=== PATIENT | female | born 1995 | race Caucasian/White ===

== ENCOUNTER 2017-08-21 08:38 | Emergency (ER) | payer OTHER ==
[~2017-08-21] VITALS: Ht 172.7 cm; Wt 69.9 kg
[~2017-08-21 08:38] MED LIST: AMPH1TAB58 PO; AMPH20CA3 PO; BCPILLS PO; IBUP-1050 PO
[2017-08-21 08:44] VITALS: TEMP 36.6; Ht 172.7 cm; Wt 69.9 kg
[2017-08-21] MEDS ORDERED: ONDANSETRON INJ 2 MG/ML 2 ML VIAL IV STA (09:13)
[2017-08-21] MEDS ORDERED: SODIUM CHLORIDE 0.9% 1000ML 1,000 ML IV STA (09:13)
[2017-08-21] MEDS ORDERED: FLUO20CA35 PO (09:15)
[2017-08-21 09:38] LABS: BASO % 0.5 %; BASO ABS # 0.03 K/uL (0-0.2); EOS ABS # 0.06 K/uL (0-0.5); HEMATOCRIT 42.2 % (37-47); HEMOGLOBIN 14.6 g/dL (12.0-16.0); IG# 0.01 K/uL (0.00-0.02); LYMPH % 24.9 %; LYMPH ABS # 1.46 K/uL (1.2-3.4); MEAN CELL VOLUME 90.2 fL (80-100); MEAN CORPUSCULAR HEMOGLOBIN 31.2 pg (25-34); MEAN CORPUSCULAR HGB CONC 34.6 g/dl (32-36); MEAN PLATELET VOLUME 9.7 fL (7.4-10.4); MONO % 7.2 %; MONO ABS # 0.42 K/uL (0.11-0.59); NEUT % 66.2 %; NEUT ABS # 3.89 K/uL (1.4-6.5); PLATELET COUNT 238 K/uL (130-400); RED CELL DISTRIBUTION WIDTH CV 12.7 % (11.5-14.5); RED CELL DISTRIBUTION WIDTH SD 41.4 fL (36.4-46.3); WHITE BLOOD COUNT 5.87 K/uL (4.8-10.8)
[2017-08-21 10:05] LABS: ALBUMIN 4.3 gm/dl (3.4-5.0); CALCIUM 9.3 mg/dl (8.5-10.1); CREATININE 1.03 mg/dl (0.60-1.20); POTASSIUM 4.4 mmol/L (3.5-5.1)
[2017-08-21 10:07] LABS: TOTAL PROTEIN 8.5 gm/dl (6.4-8.2)
[2017-08-21] MEDS ORDERED: ONDA4TAB10 SL (11:22)
--- NOTE | 2017-08-21 11:23 | EMERGENCY ROOM VISIT NOTE ---
History First contact with patient: 08:47 Chief Complaint: ABDOMINAL PAIN Stated Complaint: SEVERE STOMACH PAIN, DIARRHEA Nursing Triage Summary: "Two weeks ago what I thought was just the flu. I had a diarrhea, fever, vomiting that lasted 3 days." She relates that she improved and this week she has been fatigued. She now has abdominal pain and "straight diarrhea". Generalized abdominal pain. History of Present Illness The patient is a 21 year old female who presents to the Emergency Room with complaints of diarrhea, abdominal discomfort and nausea. The patient states that these symptoms started last night. She does report that 2 weeks ago, she had 3 days of diarrhea, vomiting and fever. These symptoms resolved. She states she has had decreased energy this week and her diarrhea returned last night. She has had crampy abdominal pains which become more sharp when she begins having a bowel movement but then feels slightly better after having a bowel movement. She rates the discomfort as 7/10. She has been nauseous, but has not vomited. She denies any history of abdominal issues or surgeries. She denies blood in her stools, fevers, or urinary symptoms. She denies recent foreign travel, antibiotic use or consumption of any raw foods or abnormal water sources. Review of Systems A complete 10 point review of systems was reviewed with the patient with pertinent positives and negatives as per history of present illness. All else were negative. Past Medical/Surgical History Medical Problems: (1) No significant past medical history Surgical Problems: (1) History of tonsillectomy Family History No significant family history Social History Smoking Status: Never Smoker Alcohol Use: occasionally Marital Status: single Occupation Status: employed Current/Historical Medications Scheduled Amphetamine-Dextroamphetamine 20MG (Adderall Xr 20MG), 20 MG PO PRN Amphetamine-Dextroamphetamine 5MG (Adderall 5MG), 5 MG PO PRN Control Pills ( Control Pills), 1 TAB PO DAILY Fluoxetine (Prozac), 20 MG PO 2XWK Ondasetron Odt (Zofran Odt), 4 MG SL Q6H Physical Exam Vital Signs Date Time Temp Pulse Resp B/P (MAP) Pulse Ox O2 Delivery O2 Flow Rate FiO2 08/21/17 11:37 57 18 102/57 100 08/21/17 10:45 64 18 104/59 100 Room Air 08/21/17 08:44 36.6 95 20 117/81 96 Room Air Physical Exam VITALS: Vitals are noted on the nurse's note and reviewed by myself. Vital signs stable. GENERAL: This is a 21-year-old female, in no acute distress, nondiaphoretic, well-developed well-nourished. SKIN: The skin was without rashes. EARS: External auditory canals clear, tympanic membranes pearly washburn without erythema or effusion bilaterally. EYES: Pupils equal round and reactive to light and accommodation. MOUTH: Mucous membranes moist. Tonsils are not enlarged. Pharynx without erythema or exudate. NECK: Supple without nuchal rigidity. No lymphadenopathy. HEART: Regular rate and rhythm without murmurs gallops or rubs. LUNGS: Clear to auscultation bilaterally without wheezes, rales or rhonchi. ABDOMEN: Positive bowel sounds x 4. Soft, generalized mild tenderness to palpation. No guarding or rebound tenderness. No focal tenderness. NEURO: Patient was alert and oriented to person place and time. Medical Decision & Procedures Laboratory Results 08/21/17 09:25 Red Blood Count 4.68, Mean Corpuscular Volume 90.2, Mean Corpuscular Hemoglobin 31.2, Mean Corpuscular Hemoglobin Concent 34.6, Mean Platelet Volume 9.7, Neutrophils (%) (Auto) 66.2, Lymphocytes (%) (Auto) 24.9, Monocytes (%) (Auto) 7.2, Eosinophils (%) (Auto) 1.0, Basophils (%) (Auto) 0.5, Neutrophils # (Auto) 3.89, Lymphocytes # (Auto) 1.46, Monocytes # (Auto) 0.42, Eosinophils # (Auto) 0.06, Basophils # (Auto) 0.03 08/21/17 09:25 Test 08/21/17 09:25 08/21/17 09:40 White Blood Count 5.87 K/uL (4.8-10.8) Red Blood Count 4.68 M/uL (4.2-5.4) Hemoglobin 14.6 g/dL (12.0-16.0) Hematocrit 42.2 % (37-47) Mean Corpuscular Volume 90.2 fL (80-100) Mean Corpuscular Hemoglobin 31.2 pg (25-34) Mean Corpuscular Hemoglobin Concent 34.6 g/dl (32-36) Platelet Count 238 K/uL (130-400) Mean Platelet Volume 9.7 fL (7.4-10.4) Neutrophils (%) (Auto) 66.2 % Lymphocytes (%) (Auto) 24.9 % Monocytes (%) (Auto) 7.2 % Eosinophils (%) (Auto) 1.0 % Basophils (%) (Auto) 0.5 % Neutrophils # (Auto) 3.89 K/uL (1.4-6.5) Lymphocytes # (Auto) 1.46 K/uL (1.2-3.4) Monocytes # (Auto) 0.42 K/uL (0.11-0.59) Eosinophils # (Auto) 0.06 K/uL (0-0.5) Basophils # (Auto) 0.03 K/uL (0-0.2) RDW Standard Deviation 41.4 fL (36.4-46.3) RDW Coefficient of Variation 12.7 % (11.5-14.5) Immature Granulocyte % (Auto) 0.2 % Immature Granulocyte # (Auto) 0.01 K/uL (0.00-0.02) Anion Gap 5.0 mmol/L (3-11) Est Creatinine Clear Calc Drug Dose 85.7 ml/min Estimated GFR () 88.7 Estimated GFR (Non- 76.6 BUN/Creatinine Ratio 8.8 (10-20) Calcium Level 9.3 mg/dl (8.5-10.1) Total Bilirubin 0.5 mg/dl (0.2-1) Aspartate Amino Transf (AST/SGOT) 31 U/L (15-37) Alanine Aminotransferase (ALT/SGPT) 38 U/L (12-78) Alkaline Phosphatase 76 U/L (45-117) Total Protein 8.5 gm/dl (6.4-8.2) Albumin 4.3 gm/dl (3.4-5.0) Globulin 4.2 gm/dl (2.5-4.0) Albumin/Globulin Ratio 1.0 (0.9-2) Urine Color DK YELLOW Urine Appearance CLOUDY (CLEAR) Urine pH 5.0 (4.5-7.5) Urine Specific [place] 1.031 (1.000-1.030) Urine Protein NEG (NEG) Urine Glucose (UA) NEG (NEG) Urine Ketones TRACE (NEG) Urine Occult Blood NEG (NEG) Urine Nitrite NEG (NEG) Urine Bilirubin NEG (NEG) Urine Urobilinogen NEG (NEG) Urine Leukocyte Esterase TRACE (NEG) Urine WBC (Auto) 5-10 /hpf (0-5) Urine RBC (Auto) 5-10 /hpf (0-4) Urine Hyaline Casts (Auto) 1-5 /lpf (0-5) Urine Epithelial Cells (Auto) >30 /lpf (0-5) Urine Bacteria (Auto) 2+ (NEG) Urine Test NEG (NEG) Date/Time Source Procedure Growth Status 08/21/17 09:40 Stool C.difficile Toxin B Gene (PCR) - Final No C. difficile toxin B gene detected Complete Medications Administered Medications (Trade) Dose Ordered Sig/Salazar Route Start Time Stop Time Status Last Admin Dose Admin Sodium Chloride 1,000 ml @ 999 mls/hr Q1H1M STAT IV 08/21/17 09:13 08/21/17 10:13 DC 08/21/17 09:33 999 MLS/HR Ondansetron HCl (Zofran Inj) 4 mg NOW STAT IV 08/21/17 09:13 08/21/17 09:14 DC 08/21/17 09:34 4 MG Medical Decision Differential diagnosis includes C. difficile diarrhea, foodborne illness, viral gastroenteritis, colitis, IBS, IBD, among others. The patient is a 21-year-old female who presents today complaining of diarrhea and abdominal discomfort. Labs revealed no leukocytosis, anemia or concerning electrolyte abnormalities. Urinalysis was suggestive of contamination versus infection, and as patient has no urinary symptoms this will be sent for culture. Urine was negative. As the patient has had 2 episodes of diarrhea in the past few weeks, stool studies were obtained and are pending. The patient was hydrated and given antiemetics. She felt much better after this treatment. Based on the patient's presentation and work up, I feel the patient is stable for outpatient treatment. The patient was educated to return to the emergency department for any worsening of their current condition or new/concerning symptoms. She will follow up with her PCP. Medication Reconcilliation Current Medication List: was personally reviewed by me Blood Pressure Screening Patient's blood pressure: Low blood pressure (appears to be patient's baseline) Impression Primary Impression: Diarrhea Departure Information Dispostion Home / Self-Care Condition GOOD Prescriptions Ondasetron Odt (ZOFRAN ODT) 4 Mg Tab 4 MG SL Q6H for Nausea, #15 TAB Prov: Madelaine Robles ., TON 08/21/17 Referrals No Doctor, Assigned (PCP) Patient Instructions My [facility] Additional Instructions You have been prescribed Zofran to be used for any nausea or vomiting. Take as prescribed. For pain control, you can use the following sfel-liw-hvwawty medicines (if >12 yo): - Regular strength (325mg/tab) Tylenol (acetaminophen) 2 tabs every 4-6 hours as needed. Do not exceed 12 tablets in a 24 hour period. Avoid taking more than 4 grams (4000 mg) of Tylenol per day. This includes any other sources of acetaminophen you may take on a regular basis. - Regular strength (200 mg/tab) Advil (ibuprofen) 1-2 tabs every 4-6 hours as needed. Do not exceed a dose of 3200 mg per day. Drink plenty of fluids to stay well-hydrated. Return to the emergency department with worsening vomiting, fever, worsening abdominal pain or other new/concerning symptoms.
[2017-08-21 11:37] VITALS: BP 102/57; PULSE 57; O2SAT 100
== END 2017-08-21 11:39 | disposition home or self-care (01) ==
LOC: C.EDB 08:40
DX: R19.7 Diarrhea, unspecified (principal); Z79.3 Long term (current) use of hormonal contraceptives

== ENCOUNTER 2017-09-18 02:10 | Emergency (ER) | payer OTHER ==
[~2017-09-18] VITALS: Ht 175.3 cm; Wt 74.0 kg
[~2017-09-18 02:10] MED LIST changes: +FLUO20CA35 PO; -IBUP-1050 PO; +ONDA4TAB10 SL
[2017-09-18 02:12] VITALS: TEMP 36.4; Ht 175.3 cm; Wt 74.0 kg
[2017-09-18 02:19] VITALS: O2SAT 98
[2017-09-18 02:50] LABS: CALCIUM 9.2 mg/dl (8.5-10.1); CREATININE 1.08 mg/dl (0.60-1.20); POTASSIUM 3.5 mmol/L (3.5-5.1)
--- NOTE | 2017-09-18 02:57 | EMERGENCY ROOM VISIT NOTE ---
History Report prepared by Jitendra: Chance De Leon Under the Supervision of: Dr. Jasbir Jenkins M.D. First contact with patient: 02:11 Chief Complaint: ALCOHOL OVERDOSE Stated Complaint: ALCOHOL OVERDOSE Nursing Triage Summary: Pt brought in by EMS. Pt was found walking down the road by [employer]. Pt found intoxicated and blew a .253. No trauma noted. Pt is awake. Talking on phone with mother. 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 Per nursing staff, the patient was found walking in the road by police. She states that she has been drinking tonight. The patient is on the phone with her mother. The patient has a history of stomach problems and is scheduled to see a shear helper next week. HPI is limited secondary to alcohol intoxication. Source of History: patient, nursing staff History Limited By: intoxication (alcohol) Onset: COLLECTION MANAGER Position: other (general) Quality: other (alcohol intoxication) Timing: other (persistent) Review of Systems ROS is limited secondary to alcohol intoxication. Past Medical & Surgical Medical Problems: (1) No significant past medical history Surgical Problems: (1) History of tonsillectomy Family History No significant family history Social History Smoking Status: Never Smoker Alcohol Use: occasionally Marital Status: single Housing Status: lives with roommate Occupation Status: employed Current/Historical Medications Scheduled Amphetamine-Dextroamphetamine 20MG (Adderall Xr 20MG), 20 MG PO PRN Amphetamine-Dextroamphetamine 5MG (Adderall 5MG), 5 MG PO PRN Control Pills ( Control Pills), 1 TAB PO DAILY Allergies Coded Allergies: No Known Allergies (Unverified , 09/18/17) Physical Exam Vital Signs Date Time Temp Pulse Resp B/P (MAP) Pulse Ox O2 Delivery O2 Flow Rate FiO2 09/18/17 06:54 82 18 110/60 100 Room Air 09/18/17 05:55 64 09/18/17 05:40 86 16 94/52 96 Room Air 09/18/17 04:24 93 16 111/60 98 Room Air 09/18/17 03:05 68 16 99/59 100 Room Air 09/18/17 02:33 100 09/18/17 02:19 98 Room Air 09/18/17 02:12 36.4 76 20 115/53 98 Room Air Physical Exam GENERAL: Patient is heavily intoxicated. Smells of alcohol. Well appearing and in no acute distress. Talking to mom on phone. HEAD: No evidence of Trauma. AT/NC EYES: Injected conjunctiva. Normal EOM. Pupils equal/reactive. ENT: Mucous membranes moist, no nasal congestion. NECK: No step-offs, no adenopathy, no meningismus, trachea is midline. LUNGS: No dyspnea. Clear to auscultation and equal bilaterally. No wheeze, no rhonchi. HEART: Regular rate and rhythm. No murmurs, rubs, gallops appreciated. GI: Abdomen soft, nontender, no peritonitis. Bowel sounds positive. No masses appreciated. BACK: No midline tenderness, no stepoffs, no CVA tenderness. EXTREMITIES: Normal motion all extremities, no cyanosis, no edema. NEUROLOGIC: Intoxicated. Alert, not completely oriented. Slurred speech. No acute motor or sensory deficits, no focal weakness, cranial nerves grossly intact. SKIN: No rash, no jaundice, no diaphoresis. Medical Decision & Procedures Laboratory Results 09/18/17 02:20 Test 09/18/17 02:20 Anion Gap 4.0 mmol/L (3-11) Est Creatinine Clear Calc Drug Dose 84.7 ml/min Estimated GFR () 83.8 Estimated GFR (Non- 72.3 BUN/Creatinine Ratio 8.8 (10-20) Calcium Level 9.2 mg/dl (8.5-10.1) Human Chorionic Gonadotropin, Qual NEG (NEG) Ethyl Alcohol mg/dL 310.0 mg/dl (0-3) Laboratory results as reviewed by me. ED Course 0229: The patient was evaluated in room A12A. A complete history and physical exam was performed. I spoke with the patient's mother via the phone as requested by the patient. 0400: I reassessed the patient at this time. She is resting comfortably. 0729: I reassessed the patient at this time. She is feeling better and resting comfortably. I discussed the results and treatment plan with the patient. I answered all pertaining questions that she had. She expressed understanding and verbalized agreement. The patient will be discharged home. Medical Decision Differential: Alcohol Intoxication, Drug Intoxication, Electrolyte Abnormality, Trauma, Intracranial Event, Toxicological, Excited Delirium, Serotonin Syndrome , amongst other pathologies entertained. 21 yr old intoxicated female brought in by EMS after being found by police walking intoxicated down middle of the road. Patient on speaker phone with her parents during evaluation and they are aware of situation and seem agreeable with watching her here in ED. Patient eventually fell asleep without issue. Patient with no evidence nor history for trauma. Protecting airway and breathing comfortably throughout ED stay. EtOH positive. Monitored and discharged when awake, alert, oriented and denies any complaints. Medication Reconcilliation Current Medication List: was personally reviewed by me Blood Pressure Screening Patient's blood pressure: Normal blood pressure Impression Primary Impression: Alcohol use with intoxication Additional Impression: Alcohol abuse Scribe Attestation The scribe's documentation has been prepared under my direction and personally reviewed by me in its entirety. I confirm that the note above accurately reflects all work, treatment, procedures, and medical decision making performed by me. Departure Information Dispostion Home / Self-Care Referrals No Doctor, Assigned (PCP) Patient Instructions My [facility] Emergency Department: [employer] Students and Alcohol Related Visits Additional Instructions You were evaluated in emergency department for intoxication. This is a sign of Alcohol Abuse and should not be taken lightly. You had a blood alcohol level that was significantly elevated. Over the next 24 hours keep well hydrated and eat light meals. Don't drink any more alcohol. This is important. Please discuss this visit with your Primary Care Provider and/or your loved ones. Unless an exceptional circumstance, the Hospital DOES NOT contact anyone DURING your visit, nor is your Protected Medical Information released to anyone without your approval/request. This means we do not contact your Parents, the Police, etc. However, you will likely receive a bill from the Hospital and/or your Insurance company, which will usually be sent to the Primary Policy [place] (often one's Parents). If the Police were involved you will likely be cited for public intoxication. Please contact either [facility] Police or the [place] Police for further information. Call 911 or return to Emergency Department if you develop: Passing out, difficulty breathing, many episodes of vomiting, blood in vomit or stool, abdominal pain, fevers, or other severe symptoms. We are always here to help if you feel you need further evaluation or treatment. Problem Qualifiers
[2017-09-18 06:54] VITALS: BP 110/60; PULSE 82; O2SAT 100
== END 2017-09-18 07:31 | disposition home or self-care (01) ==
LOC: EDBD 02:10 → C.EDA 02:12
DX: F10.929 Alcohol use, unspecified with intoxication, unspecified (principal); Y90.8 Blood alcohol level of 240 mg/100 ml or more; Z79.3 Long term (current) use of hormonal contraceptives; Z79.899 Other long term (current) drug therapy